=== PATIENT | female | born 1965 | race Caucasian/White ===

== ENCOUNTER 2016-09-13 11:37 | Emergency (ER) | payer MEDICARE, MEDICAID ==
[~2016-09-13] VITALS: Ht 160 cm; Wt 78.5 kg
[~2016-09-13 11:37] MED LIST: BUSPAR DIVIDOSE15 MG PO; DITROPAN XL10 MG PO; FLEXERIL 1010 MG/TAB PO; LAMICTAL200 MG PO; LYRICA 100MG C100 M1 PO; NORCO 325 MG-51 TAB PO; PREDNISONE20 MG PO; PRISTIQ 50 MG T50 MG PO; SYNTHROID0.125 MG/T PO
[2016-09-13 11:39] VITALS: TEMP 98.6
[2016-09-13 12:26] LABS: PH 7 (5-8); SQUAMOUS EPITHELIAL 0-2 /hpf; URINE APPEARANCE Clear; URINE BACTERIA None Seen /hpf; URINE BILIRUBIN Negative (NEGATIVE); URINE BLOOD 1+ (NEGATIVE); URINE COLOR Yellow; URINE GLUCOSE Negative (NEGATIVE); URINE KETONE Negative (NEGATIVE); URINE RBC 0-2 /hpf; URINE UROBILINOGEN Negative (NEGATIVE); URINE WBC 0-2 /hpf
[2016-09-13 12:27] LABS: BASO % 0.7 % (0.0-2.0); EOS # 0.2 (0.0-0.7); EOS % 3.5 % (0-4.0); GRAN # 2.7 (1.4-6.5); GRAN % 44.2 % (42.2-75.2); HEMATOCRIT 41.2 % (37.0-47.0); HEMOGLOBIN 13.5 g/dl (12.5-16.0); LYMPH # 2.6 (1.2-3.4); MEAN CELL VOLUME 93 fl (80.0-100.0); MEAN CORPUSCULAR HEMOGLOBIN 30 pg (27.0-31.0); MEAN CORPUSCULAR HGB CONC 33 g/dl (33.0-37.0); MEAN PLATELET VOLUME 10.2 fl (7.4-10.4); MONO # 0.5 (0.1-0.6); MONO % 8.4 % (1.7-9.3); PLATELET COUNT 317 K/mm3 (130-400); RED BLOOD COUNT 4.44 M/mm3 (4.10-5.30); REDCELL DISTRIBUTION WIDTH-CV 12.7 % (11.5-14.5)
[2016-09-13 12:38] LABS: ADJUSTED CALCIUM 8.9 mg/dL (8.4-10.2); ALANINE AMINOTRANSFERASE 28 U/L (9-52); ALBUMIN 4.4 gm/dL (3.5-5.0); ALKALINE PHOSPHATASE 99 U/L (50-136); ANION GAP 12 mmol/L (7-16); BILIRUBIN,TOTAL 0.6 mg/dL (0.0-1.0); BLOOD UREA NITROGEN 20 mg/dL (7-17); CALCIUM 9.2 mg/dL (8.4-10.2); CARBON DIOXIDE 30 mmol/L (22-30); CHLORIDE 102 mmol/L (98-107); CREATININE, serum 0.82 mg/dL (0.52-1.25); GLUCOSE 87 mg/dL (74-106); LIPASE 151 U/L (23-300); POTASSIUM 4.2 mmol/L (3.4-5.0); SODIUM 144 mmol/L (137-145); TOTAL PROTEIN 7.6 gm/dL (6.4-8.2)
[2016-09-13] MEDS ORDERED: MOBIC15 MG PO (12:44)
[2016-09-13] MEDS ORDERED: MYRBETR50MG PO (12:45)
[2016-09-13 12:51] LABS: TROPONIN-I < 0.012 ng/mL (0.000-0.034)
[2016-09-13] MEDS ORDERED: NEXIUM 20MG20 MG PO (13:49)
[2016-09-13 14:02] VITALS: BP 148/72; PULSE 88
[2017-02-26] MEDS ORDERED: AMOXICILLIN 8751 TAB PO (14:16)
[2017-02-26] MEDS ORDERED: PERIDEX (CHLOR480 ML MM (14:58)
[2017-02-26] MEDS ORDERED: NORCO 325 MG-51 TAB PO (14:59)
[2017-02-26] MEDS ORDERED: MIRALAX PA17 GM/Dose PO (14:59)
[2017-02-26] MEDS ORDERED: SYSTANE 0.4%-0.1 SOL OP (16:20)
== END 2016-09-13 14:03 | disposition home or self-care (01) ==
LOC: COL.ER 11:37
PROVIDERS: Emergency Medicine
DX: R10.13 Epigastric pain (principal)

== ENCOUNTER → 2016-09-20 | Outpatient (CLI) | payer MEDICARE, MEDICAID ==
[~2016-09-20] MED LIST changes: +AMOXICILLIN 8751 TAB PO; +MIRALAX PA17 GM/Dose PO; +MOBIC15 MG PO; +MYRBETR50MG PO; +NEXIUM 20MG20 MG PO; +PERIDEX (CHLOR480 ML MM; +SYSTANE 0.4%-0.1 SOL OP
== END ==
LOC: COL.RAD 09-16 14:45
DX: M51.36 Other intervertebral disc degeneration, lumbar region (principal); Q76.49 Other congenital malformations of spine, not associated with scoliosis; G62.89 Other specified polyneuropathies; M54.31 Sciatica, right side; R25.3 Fasciculation

== ENCOUNTER 2017-01-30 08:41 | Emergency (ER) | payer MEDICARE, MEDICAID ==
[~2017-01-30] VITALS: Ht 160 cm; Wt 81.8 kg
[~2017-01-30 08:41] MED LIST changes: -AMOXICILLIN 8751 TAB PO; -MIRALAX PA17 GM/Dose PO; -PERIDEX (CHLOR480 ML MM; -SYSTANE 0.4%-0.1 SOL OP
[2017-01-30 08:44] VITALS: TEMP 98.5
[2017-01-30 09:46] VITALS: BP 118/56; PULSE 72
[2017-02-26] MEDS ORDERED: AMOXICILLIN 8751 TAB PO (14:16)
[2017-02-26] MEDS ORDERED: PERIDEX (CHLOR480 ML MM (14:58)
[2017-02-26] MEDS ORDERED: NORCO 325 MG-51 TAB PO (14:59)
[2017-02-26] MEDS ORDERED: MIRALAX PA17 GM/Dose PO (14:59)
[2017-02-26] MEDS ORDERED: SYSTANE 0.4%-0.1 SOL OP (16:20)
== END 2017-01-30 10:04 | disposition home or self-care (01) ==
LOC: COL.ER 08:41
DX: R10.2 Pelvic and perineal pain (principal); F12.10 Cannabis abuse, uncomplicated; G62.9 Polyneuropathy, unspecified; Z87.39 Personal history of other diseases of the musculoskeletal system and connective tissue; Z87.312 Personal history of (healed) stress fracture; Z98.51 Tubal ligation status

== ENCOUNTER → 2017-02-02 | Outpatient (CLI) | payer MEDICARE, MEDICAID ==
[~2017-02-02] MED LIST changes: +AMOXICILLIN 8751 TAB PO; +MIRALAX PA17 GM/Dose PO; +PERIDEX (CHLOR480 ML MM; +SYSTANE 0.4%-0.1 SOL OP
== END ==
LOC: COL.RAD 11:24
DX: M84.454K Pathological fracture, pelvis, subsequent encounter for fracture with nonunion (principal); Z87.311 Personal history of (healed) other pathological fracture

== ENCOUNTER 2018-01-26 09:21 | Emergency (ER) | payer MEDICARE, MEDICAID ==
[~2018-01-26] VITALS: Ht 162.6 cm; Wt 84.5 kg
[2018-01-26 09:25] VITALS: TEMP 98
[2018-01-26 10:42] VITALS: BP 112/93; PULSE 74
== END 2018-01-26 10:44 | disposition home or self-care (01) ==
LOC: COL.ER 09:21
DX: S83.92XA Sprain of unspecified site of left knee, initial encounter (principal); F31.9 Bipolar disorder, unspecified; G62.9 Polyneuropathy, unspecified; W07.XXXA Fall from chair, initial encounter; Y92.009 Unspecified place in unspecified non-institutional (private) residence as the place of occurrence of the external cause

== ENCOUNTER → 2018-04-05 | Outpatient (CLI) | payer MEDICARE, MEDICAID ==
[~2018-04-05] VITALS: Ht 162.6 cm; Wt 88.5 kg
[~2018-04-05] MED LIST changes: +D3-5050000 IU PO; +NATURAL FLAX1000 MG PO; +SAXENDA6 MG/ML SQ; +STOOL SOFTENER100 M2 PO
[2018-04-05 08:25] VITALS: BP 120/86; PULSE 92
== END ==
LOC: LIGHT 08:03
DX: E78.5 Hyperlipidemia, unspecified (principal); R73.01 Impaired fasting glucose; M79.10 Myalgia, unspecified site; E66.01 Morbid (severe) obesity due to excess calories; Z68.33 Body mass index [BMI] 33.0-33.9, adult; Z71.3 Dietary counseling and surveillance
CPT/HCPCS: G0463

== ENCOUNTER → 2018-04-09 | Outpatient (CLI) | payer MEDICARE, MEDICAID | LOC: LIGHT 09:46 | DX: E78.5 Hyperlipidemia, unspecified (principal); R73.01 Impaired fasting glucose; M79.10 Myalgia, unspecified site; E66.01 Morbid (severe) obesity due to excess calories; Z71.3 Dietary counseling and surveillance; Z68.33 Body mass index [BMI] 33.0-33.9, adult ==

== ENCOUNTER → 2018-04-11 | Outpatient (CLI) | payer MEDICARE, MEDICAID | LOC: LIGHT 15:06 | DX: E78.5 Hyperlipidemia, unspecified (principal); R73.01 Impaired fasting glucose; M79.10 Myalgia, unspecified site; E66.9 Obesity, unspecified; Z68.33 Body mass index [BMI] 33.0-33.9, adult; Z71.3 Dietary counseling and surveillance ==

== ENCOUNTER → 2018-05-01 | Outpatient (CLI) | payer MEDICARE, MEDICAID ==
[~2018-05-01] VITALS: Ht 162.6 cm; Wt 85.3 kg
== END ==
LOC: LIGHT 10:12
DX: E78.5 Hyperlipidemia, unspecified (principal); R73.01 Impaired fasting glucose; M79.10 Myalgia, unspecified site; E66.9 Obesity, unspecified; Z68.33 Body mass index [BMI] 33.0-33.9, adult; Z71.3 Dietary counseling and surveillance

== ENCOUNTER → 2018-07-12 | Outpatient (CLI) | payer MEDICARE, MEDICAID ==
[~2018-07-12] VITALS: Ht 162.6 cm; Wt 78.7 kg
[2018-07-12 15:26] VITALS: BP 108/76; PULSE 60
== END ==
LOC: LIGHT 06-07 10:23
DX: E78.5 Hyperlipidemia, unspecified (principal); R73.01 Impaired fasting glucose; M79.10 Myalgia, unspecified site; E66.9 Obesity, unspecified; Z68.29 Body mass index [BMI] 29.0-29.9, adult; Z71.3 Dietary counseling and surveillance
CPT/HCPCS: G0463

== ENCOUNTER → 2018-08-16 | Outpatient (CLI) | payer MEDICARE, MEDICAID ==
[~2018-08-16] VITALS: Ht 162.6 cm; Wt 77.8 kg
[~2018-08-16] MED LIST changes: -PRISTIQ 50 MG T50 MG PO; +PRISTIQ100 MG PO
[2018-08-16 11:32] VITALS: BP 106/70; PULSE 72
== END ==
LOC: LIGHT 10:45
DX: E78.5 Hyperlipidemia, unspecified (principal); R73.01 Impaired fasting glucose; M79.18 Myalgia, other site; E66.9 Obesity, unspecified; Z68.29 Body mass index [BMI] 29.0-29.9, adult; Z71.3 Dietary counseling and surveillance
CPT/HCPCS: G0463

== ENCOUNTER → 2018-09-13 | Outpatient (CLI) | payer MEDICARE, MEDICAID ==
[~2018-09-13] VITALS: Ht 162.6 cm; Wt 75.7 kg
[2018-09-13 11:24] VITALS: BP 94/70; PULSE 88
== END ==
LOC: LIGHT 11:06
DX: E78.5 Hyperlipidemia, unspecified (principal); M79.18 Myalgia, other site; R73.01 Impaired fasting glucose; E66.9 Obesity, unspecified; Z68.28 Body mass index [BMI] 28.0-28.9, adult; Z71.3 Dietary counseling and surveillance
CPT/HCPCS: G0463

== ENCOUNTER → 2018-10-25 | Outpatient (CLI) | payer MEDICARE, MEDICAID ==
[~2018-10-25] VITALS: Ht 162.6 cm; Wt 75.1 kg
[2018-10-25 14:28] VITALS: BP 114/80; PULSE 72
== END ==
LOC: LIGHT 14:15
DX: E78.5 Hyperlipidemia, unspecified (principal); R73.01 Impaired fasting glucose; M79.10 Myalgia, unspecified site; E66.9 Obesity, unspecified; Z68.28 Body mass index [BMI] 28.0-28.9, adult; Z71.3 Dietary counseling and surveillance
CPT/HCPCS: G0463

== ENCOUNTER 2018-11-01 15:45 | Outpatient (RCR) | payer MEDICARE, MEDICAID | END 2018-11-06 14:53 | disposition home or self-care (01) | LOC: WSPT 15:45 | DX: G62.9 Polyneuropathy, unspecified (principal); M19.90 Unspecified osteoarthritis, unspecified site; M54.31 Sciatica, right side; M79.7 Fibromyalgia ==

== ENCOUNTER → 2018-11-29 | Outpatient (CLI) | payer MEDICARE, MEDICAID ==
[~2018-11-29] VITALS: Ht 162.6 cm; Wt 73.3 kg
[2018-11-29 15:43] VITALS: BP 102/78; PULSE 76
== END ==
LOC: LIGHT 11:53
DX: E78.5 Hyperlipidemia, unspecified (principal); R73.01 Impaired fasting glucose; M79.10 Myalgia, unspecified site; E66.9 Obesity, unspecified; Z68.27 Body mass index [BMI] 27.0-27.9, adult; Z71.3 Dietary counseling and surveillance
CPT/HCPCS: G0463

== ENCOUNTER → 2019-01-10 | Outpatient (CLI) | payer MEDICARE, MEDICAID ==
[~2019-01-10] VITALS: Ht 162.6 cm; Wt 71.9 kg
[2019-01-10 15:00] VITALS: BP 96/70; PULSE 76
== END ==
LOC: LIGHT 01:30
DX: E78.5 Hyperlipidemia, unspecified (principal); R73.01 Impaired fasting glucose; M79.10 Myalgia, unspecified site; E66.9 Obesity, unspecified; Z68.27 Body mass index [BMI] 27.0-27.9, adult; Z71.3 Dietary counseling and surveillance
CPT/HCPCS: G0463

== ENCOUNTER → 2019-02-21 | Outpatient (CLI) | payer MEDICARE, MEDICAID ==
[~2019-02-21] VITALS: Ht 162.6 cm; Wt 74.8 kg
[~2019-02-21] MED LIST changes: +ERGOCALCIFER50000 IU PO
[2019-02-21 14:57] VITALS: BP 104/80; PULSE 72
== END ==
LOC: LIGHT 10:28
DX: E78.5 Hyperlipidemia, unspecified (principal); R73.01 Impaired fasting glucose; M79.10 Myalgia, unspecified site; E66.9 Obesity, unspecified; Z68.28 Body mass index [BMI] 28.0-28.9, adult; Z71.3 Dietary counseling and surveillance
CPT/HCPCS: G0463

== ENCOUNTER 2019-02-24 10:49 | Emergency (ER) | payer MEDICARE, MEDICAID ==
[~2019-02-24] VITALS: Ht 162.6 cm; Wt 75.0 kg
[2019-02-24 13:48] VITALS: BP 126/86; PULSE 89; TEMP 98.9
== END 2019-02-24 13:49 | disposition home or self-care (01) ==
LOC: COL.ER 10:49
DX: K13.79 Other lesions of oral mucosa (principal); Z87.891 Personal history of nicotine dependence; Z88.8 Allergy status to other drugs, medicaments and biological substances

== ENCOUNTER → 2019-03-21 | Outpatient (CLI) | payer MEDICARE, MEDICAID ==
[~2019-03-21] VITALS: Ht 162.6 cm; Wt 74.8 kg
[2019-03-21 15:26] VITALS: BP 96/70; PULSE 92
== END ==
LOC: LIGHT 13:39
DX: E78.5 Hyperlipidemia, unspecified (principal); R73.01 Impaired fasting glucose; M79.18 Myalgia, other site; E66.9 Obesity, unspecified; Z68.28 Body mass index [BMI] 28.0-28.9, adult; Z71.3 Dietary counseling and surveillance
CPT/HCPCS: G0463

== ENCOUNTER → 2019-04-25 | Outpatient (CLI) | payer MEDICARE, MEDICAID ==
[~2019-04-25] VITALS: Ht 162.6 cm; Wt 75.7 kg
[2019-04-25 14:27] VITALS: BP 100/78; PULSE 80
== END ==
LOC: LIGHT 14:07
DX: E78.5 Hyperlipidemia, unspecified (principal); R73.01 Impaired fasting glucose; M79.10 Myalgia, unspecified site; E66.9 Obesity, unspecified; Z68.28 Body mass index [BMI] 28.0-28.9, adult; Z71.3 Dietary counseling and surveillance
CPT/HCPCS: G0463

== ENCOUNTER 2019-07-11 20:22 | Emergency (ER) | payer MEDICARE, MEDICAID ==
[~2019-07-11] VITALS: Ht 162.6 cm; Wt 77.3 kg
[2019-07-11 20:30] VITALS: BP 158/70; TEMP 97.8
[2019-07-11] MEDS ORDERED: AMITIZA24 MCG PO (20:43)
[2019-07-11 21:20] VITALS: PULSE 82
== END 2019-07-11 21:30 | disposition home or self-care (01) ==
LOC: COL.ER 20:22
DX: R21 Rash and other nonspecific skin eruption (principal); F31.9 Bipolar disorder, unspecified

== ENCOUNTER → 2019-07-25 | Outpatient (CLI) | payer MEDICARE, MEDICAID ==
[~2019-07-25] VITALS: Ht 162.6 cm; Wt 77.8 kg
[~2019-07-25] MED LIST changes: +AMITIZA24 MCG PO; +B COMPLEX #11 TAB PO; +LYRICA 50MG CAP50 MG PO
[2019-07-25 14:34] VITALS: BP 94/74; PULSE 88
== END ==
LOC: LIGHT 06-06 14:19
DX: Z68.29 Body mass index [BMI] 29.0-29.9, adult (principal); E78.5 Hyperlipidemia, unspecified; R73.01 Impaired fasting glucose
CPT/HCPCS: G0463

== ENCOUNTER → 2020-03-05 | Outpatient (CLI) | payer MEDICARE, MEDICAID ==
[~2020-03-05] VITALS: Ht 162.6 cm; Wt 88.9 kg
[2020-03-05 16:37] VITALS: BP 116/80; PULSE 76
== END ==
LOC: LIGHT 08-22 13:26
DX: E66.8 Other obesity (principal); Z68.33 Body mass index [BMI] 33.0-33.9, adult; E78.5 Hyperlipidemia, unspecified; R73.01 Impaired fasting glucose
CPT/HCPCS: G0463